=== PATIENT | female | born 1945 | race Caucasian/White ===

== ENCOUNTER 2021-06-05 08:25 | Outpatient (CLI) | payer MEDICARE ==
[2021-06-05 09:57] LABS: Estimated GFR-MDRD - POC Greater than 90
== END 2021-06-05 08:26 | disposition home or self-care (01) ==
LOC: CSHCT 08:25
PROVIDERS: ATTEND Internal Medicine Hematology & Oncology
DX: C82.08 Follicular lymphoma grade I, lymph nodes of multiple sites (principal); R16.2 Hepatomegaly with splenomegaly, not elsewhere classified
CPT/HCPCS: 71260; 74177; 82565